=== PATIENT | female | born 1985 | race Caucasian/White ===

== ENCOUNTER 2016-10-24 10:14 | Emergency (ER) | payer SELFPAY | END 2016-10-24 15:05 | disposition home or self-care (01) | LOC: D.ER 10:14 | DX: J02.9 Acute pharyngitis, unspecified (principal); R11.0 Nausea; F17.200 Nicotine dependence, unspecified, uncomplicated ==

== ENCOUNTER 2016-10-27 17:30 | Emergency (ER) | payer SELFPAY | END 2016-10-27 20:47 | disposition home or self-care (01) | LOC: D.ER 17:30 | DX: J02.9 Acute pharyngitis, unspecified (principal); B37.0 Candidal stomatitis ==

== ENCOUNTER 2017-07-19 15:40 | Emergency (ER) | payer SELFPAY | END 2017-07-19 17:12 | disposition home or self-care (01) | LOC: D.ER 15:40 | DX: M54.5 Low back pain (principal); F17.200 Nicotine dependence, unspecified, uncomplicated ==

== ENCOUNTER 2017-10-23 12:09 | Emergency (ER) | payer SELFPAY | END 2017-10-23 17:36 | disposition home or self-care (01) | LOC: D.ER 12:09 | DX: L72.8 Other follicular cysts of the skin and subcutaneous tissue (principal) ==